=== PATIENT | male | born 1990 | race Caucasian/White ===

== ENCOUNTER 2025-01-07 11:18 | Emergency (ER) | payer BC, SELFPAY ==
[2025-01-07 11:22] VITALS: BP 139/82
[2025-01-07 11:40] LABS: % Basophils 0.8 % (0-2); % Eosinophils 1.8 % (0-6); % Immature Granulocytes 0.3 % (0-0.5); % Lymphocytes 22.8 % (20.5-51.1); % Monocytes 5.2 % (1.7-9.3); % Neutrophils 69.1 % (42.2-75.2); Absolute Basophils 0.1 10^3/uL (0-0.2); Absolute Eosinophils 0.1 10^3/uL (0-0.7); Absolute Lymphocytes 1.4 10^3/uL (1.2-3.4); Absolute Monocytes 0.3 10^3/uL (0.1-0.6); Absolute Neutrophils 4.1 10^3/uL (1.4-6.5); Hemoglobin 15.1 g/dL (13.0-18.0); Mean Corp Hgb Conc. 34.3 g/dL (33.0-37.0); Mean Corpuscular Hgb 31.2 pg (27.0-31.0); Mean Corpuscular Volume 90.9 fL (80.0-94.0); Mean Platelet Volume 9.7 fL (7.4-10.4); Nucleated Red Blood Cells % 0 % (-); Platelet Count 202 10^3/uL (130-400); Red Blood Cell Count 4.84 10^6/uL (4.70-6.10); Red Cell Dist. Width 12.6 % (11.5-14.5)
[2025-01-07 11:57] LABS: ALT (SGPT) 20 U/L (0-50); AST (SGOT) 20 U/L (17-59); Albumin 4.5 g/dl (3.5-5.0); Alkaline Phosphatase 56 U/L (38-126); Blood Urea Nitrogen 13 mg/dl (9-20); Calcium 9.1 mg/dl (8.4-10.2); Carbon Dioxide 28 mmol/L (22-30); Chloride 104 mmol/L (98-107); Glucose 123 mg/dl (70-99); Potassium 4.3 mmol/L (3.5-5.1); Sodium 138 mmol/L (135-145); Total Bilirubin 0.9 mg/dl (0.2-1.3); Total Protein 6.8 g/dl (6.3-8.2); eGFR > 60.00
--- NOTE | 2025-01-07 12:57 | ED.GENMED ---
History of Present Illness
General
Chief Complaint: Fainting/Passed Out
Source: patient
Exam Limitations: none
Time Seen by Provider: 01/07/25 12:52
Nursing documentation reviewed up to this point in time: agreed with
History of Present Illness
History of Present Illness:
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 This happened last night. Patient states that he was in [place] and he had a drink
of bourbon when he started to get a sudden onset of flushed, dizzy, lightheaded, and had some blurry vision. Patient is unsure how long the symptoms lasted. His significant other who was present with him in the room reports that this episode
lasted for around 30 seconds to 2 minutes. He walked outside of the bar and took his jacket off and sat down. He started to feel better within minutes. Currently today he is asymptomatic. He was debating coming into the emergency department
today but went to get evaluated because he had heart problems as a child. Patient denies any family history of heart disease. Patient states that since being a child has not had any heart problems since. He states that he does get intermittent
palpitations. He did have 1 other episode of presyncope before years ago when he was at a concert standing outside. He currently is asymptomatic. He denies any chest pain, lightheadedness, dizziness, shortness of breath. He did have episode of
shortness of breath last night when these other symptoms were happening but he currently denies as he denies any redness or swelling in his lower extremities, denies any recent long distance travel, [place] any recent surgeries
Review of Systems
Review of Systems
All Other Systems: ROS reviewed and negative except as documented in HPI and ROS
Phy Exam
Physical Exam
Physical Exam:
General: Patient is well appearing and in no acute distress; non-toxic
Skin: Warm and dry, no rashes or lesions
Head: Normocephalic, atraumatic
Eyes: Sclera non-icteric. EOMs intact.
Cardiac: Regular rate and rhythm, no murmur
Peripheral Vascular: No lower extremity swelling or edema
Pulm: Normal respiratory effort, no wheezes, rales, rhonchi
Neuro: CN II-XII intact, no focal neurologic deficits.
Psychiatric: Appropriate mood and affect.
Course
Orders/Labs/Results
Orders:
Orders
01/07/25 11:27
Electrocardiogram (*1) Urgent
Reason for Study: Vertigo / Dizzy
EKG- Treatment ONCE
01/07/25 11:32
Complete Blood Count/With Diff Urgent
Comprehensive Metabolic Panel Urgent
Abnormal Lab Results
01/07/25
11:32
MCH 31.2 H pg
(27.0-31.0)
Glucose 123 H mg/dl
(70-99)
01/07/25 11:32
01/07/25 11:32
Vital Signs
Initial and Last Documented VS:
Initial Vital Signs
Temp Pulse Resp BP Pulse Ox
98.3 F 92 16 139/82 100
01/07/25 11:22 01/07/25 11:22 01/07/25 11:22 01/07/25 11:22 01/07/25 11:22
Last Documented Vital Signs
Temp Pulse Resp BP Pulse Ox
98.3 F 58 16 122/85 100
01/07/25 11:22 01/07/25 13:30 01/07/25 13:30 01/07/25 13:30 01/07/25 13:30
MDM/Problems Addressed
Differential Diagnosis Includes:
ddx include vasovagal pre-syncope, anemia, electrolyte derangement, dysarhythmia, pe
MDM/Problems Addressed:
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 Patient
completely asymptomatic now. On physical exam he is well-appearing in no acute distress his heart is regular rate and rhythm with no murmurs. He has no electrolyte derangements noted on labs, he is not anemic. He is not hypoglycemic. He has no
PE risk factors. Suspect vasovagal presyncope.
Patient's intermittent sensation of palpitations, I did recommend cardiology follow-up for Holter monitoring. Patient stable for discharge.
*Pulse Oximetry
Patient hypoxic: no
*EKG
Interpreted by ED Provider?: Yes
EKG Intrepretation Date: 01/07/25
Interpretation: abnormal
Comparison EKG: no changes
Heart Rate: 59
Rate: bradycardiac
Rhythm: sinus
[place]: normal axis
Interval: normal interval
QRS Pattern: normal QRS
*Critical Care Note
Total Time (30-74mins, 75-104mins- exclusive of procedures): Not Applicable
Data Reviewed
Review of Other/Old Records Reveals: Records (No previous ER physician documentation to review) and Discharge Summary (No discharge summaries to review)
Source: patient and records
Patient Management
Escalation/DeEscalation of care consider admission/obs:
admit not indicated, patient stable for discharge
case reviewed with my attending
ED Attending Note
-
Portions of this chart may have been created with voice recognition software.� Occasional wrong word or��sound alike� substitutions may have occurred due to the inherent limitations of voice recognition software.
Discharge Plan
Departure
Patient Disposition: Home (Routine Discharge)
Date of Disposition: 01/07/25
Time of Disposition: 13:25
Patient with high blood pressure during this ER visit?: Yes
Condition: Good
Discharge Problem:
Pre-syncope
Instructions: Vasovagal Response (DC), Syncope (fainting) - Discharge instructions, BLOOD PRESSURE
Referrals:
Luca Batres, DO [Active] - Call in 1-3 days for appt
Stand Alone Forms: Return to Work
Activity Restrictions/Additional Instructions:
Please call the attached number to schedule an appointment with Dr. Batres's office ([facility]). You may need a Holter monitor to further assess your symptoms.
Please stay well hydrated.
PLEASE RETURN TO THE ER SHOULD YOU DEVELOP CHEST PAIN, SHORTNESS OF BREATH, INTRACTABLE NAUSEA OR VOMITING, AN ACUTE RETURN OF YOUR SYMPTOMS, WEAKNESS ON ONE SIDE OF THE BODY VERSUS THE OTHER, OR ANY OTHER SIGNS OR SYMPTOMS CONCERNING TO YOU.
Interventions
Interventions:
*Risk Screen - Suicide Last Done: 01/07/25 11:22
*General Assessment Last Done: 01/07/25 11:22
*Neglect/Abuse Screening Last Done: 01/07/25 11:22
ED- Fall Risk Assessment Last Done: 01/07/25 13:27
*ED COVID-19 Vaccine History Last Done: 01/07/25 11:22
*Nursing Disposition Last Done: 01/07/25 13:35
ED- Cardiac Assessment Last Done: 01/07/25 13:27
ED- Neurological Assessment Last Done: 01/07/25 13:27
Discharge Date and Time
Discharge Date/Time: 01/07/25 13:35
Print Language: TURKISH
[2025-01-07 13:30] VITALS: BP 122/85
== END 2025-01-07 13:35 | disposition home or self-care (01) ==
LOC: EMR 11:18
PROVIDERS: Emergency Medicine; EMERGENCY PHYSICIAN Emergency Medicine
DX: R55 Syncope and collapse (principal); Z86.19 Personal history of other infectious and parasitic diseases
CPT/HCPCS: 99284; 80053; 85025; 93005